=== PATIENT | female | born 1995 | race Caucasian/White ===

== ENCOUNTER 2018-04-15 14:16 | Emergency (ER) | payer OTHER ==
[2018-04-15 14:35] VITALS: BP 118/62
--- NOTE | 2018-04-15 14:49 | UC ---
Knee Pain HPI - HPI Summary HPI Summary: 1 1/2 weeks ago jumped down about 6 feet off a climbing wall. Landed on both feet and collapsed back and to the left with immediate right knee pain. Ongoing pain off/on. Worse with activity. - History of Current Complaint Chief Complaint: UCLowerExtremity Stated Complaint: RT KNEE PAIN Time Seen by Provider: 04/15/18 14:42 Hx Obtained From: Patient Hx Last Menstrual Period: 04/02/18 ?: No Onset/Duration: Sudden Onset, Lasting Weeks - 06/20, Still Present Severity Initially: Severe Severity Currently: Moderate Pain Intensity: 5 Character: Sharp, Aching Aggravating Factor(s): Weight Bearing, Prolonged Standing, Stairs Alleviating Factor(s): Rest Able to Bear Weight: Yes - Allergies/Home Medications Allergies/Adverse Reactions: Allergies Allergy/AdvReac Type Severity Reaction Status Date / Time No Known Allergies Allergy Verified 04/15/18 14:31 Home Medications: Home Medications NK [No Home Medications Reported] 04/15/18 [History Confirmed 04/15/18] PMH/Surg Hx/FS Hx/Imm Hx Previously Healthy: Yes - Surgical History Surgical History: None - Family History Known Family History: Negative: Cardiac Disease, Hypertension, Diabetes - Social History Occupation: Student Lives: Dormitory/Roommates Alcohol Use: None Substance Use Type: None Smoking Status (MU): Never Smoked Tobacco Review of Systems Musculoskeletal: Arthralgia - right knee Is Patient Immunocompromised?: No All Other Systems Reviewed And Are Negative: Yes Physical Exam Triage Information Reviewed: Yes Appearance: Well-Appearing, No Pain Distress, Well-Nourished Vital Signs: Initial Vital Signs Temp 97.9 F 04/15/18 14:28 Pulse 87 04/15/18 14:28 Resp 16 04/15/18 14:28 BP 118/62 04/15/18 14:28 Pulse Ox 98 04/15/18 14:28 Vital Signs Reviewed: Yes Eyes: Positive: Conjunctiva Clear Neck exam: Normal Respiratory Exam: Normal Cardiovascular Exam: Normal Musculoskeletal: Positive: Strength Intact, ROM Intact, Other: - Tender lateral meniscus. No ligamentous instability. Positive pain with lateral meniscus Sarah's test. Neurological Exam: Normal Psychological Exam: Normal Skin Exam: Normal Diagnostics - Radiology No standard instances Radiology Interpretation Completed By: ED Physician Summary of Radiographic Findings: Normal Knee Knee Pain Course/Dx - Differential Dx/Diagnosis Differential Diagnosis/HQI/PQRI: Fracture (Closed), Internal Derangement Of Knee , Sprain, Strain Provider Diagnoses: Right lateral meniscus tear Discharge - Sign-Out/Discharge Documenting (check all that apply): Patient Departure All imaging exams completed and their final reports reviewed: No - Discharge Plan Condition: Stable Disposition: HOME Patient Education Materials: Meniscus Tear (ED) Referrals: No Primary Care Phys,NOPCP [Primary Care Provider] - Juan A Suarez MD [Medical Doctor] - 1 Day (Follow up for possible meniscus tear. ) - Billing Disposition and Condition Condition: STABLE Disposition: Home
--- NOTE | 2018-04-15 15:59 | RAD ---
INDICATION: Right knee injury. TECHNIQUE: 4 views of the right knee were obtained. FINDINGS: The bones are in normal alignment. No joint effusion or fracture is seen. Joint spaces appear maintained. IMPRESSION: NO EVIDENCE FOR FRACTURE.
--- NOTE | 2018-04-16 10:18 | ED ---
Progress - Progress Note Progress Note: xray NAD Discharge - Sign-Out/Discharge Documenting (check all that apply): Patient Departure All imaging exams completed and their final reports reviewed: Yes - Discharge Plan Condition: Stable Disposition: HOME Patient Education Materials: Meniscus Tear (ED) Referrals: Juan A Suarez MD [Medical Doctor] - 1 Day (Follow up for possible meniscus tear. ) No Primary Care Phys,NOPCP [Primary Care Provider] - - Billing Disposition and Condition Condition: STABLE Disposition: Home
== END 2018-04-15 15:38 | disposition home or self-care (01) ==
LOC: UCCORT 14:16
DX: S83.281A Other tear of lateral meniscus, current injury, right knee, initial encounter (principal); W17.89XA Other fall from one level to another, initial encounter; Y93.39 Activity, other involving climbing, rappelling and jumping off; Y92.9 Unspecified place or not applicable
CPT/HCPCS: 99201; G0463